=== PATIENT | male | born 1985 | race Two or more races ===

== ENCOUNTER 2018-02-13 18:24 | Emergency (ER) | payer MEDICAID ==
[~2018-02-13] VITALS: Ht 175.3 cm; Wt 68.9 kg
[2018-02-13] MEDS ORDERED: BUPROPION XL300 MG ORAL (18:46)
[2018-02-13] MEDS ORDERED: LAMICTAL25 MG ORAL (18:46)
[2018-02-13] MEDS ORDERED: RISPERDAL1 MG PO (18:46)
[2018-02-13] MEDS ORDERED: ISENTRESS25 MG ORAL (18:46)
--- NOTE | 2018-02-13 19:05 | Emergency Room Report ---
History of Present Illness General Chief Complaint: Medical Clearance Source: Patient Present Illness HPI 32-year-old male patient presents to ER brought in by police for medical clearance for okay to book for incarceration. Patient denies acute complaints in ER currently. Patient reports history of bipolar disease and HIV. Patient reports that his viral load is undetectable and has a normal white blood cell count. Patient reports taking lamotrigine and 2 other medications for bipolar disease, cannot remember the names of the medications. 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 Patient reports he is currently taking Wellbutrin. Patient reports thoughts of hurting himself. Police reports that patient is not on a 5150 hold, patient is going to be taken straight to a psych facility. Denies fever, chest pain, shortness of breath, him headache, abdominal pain. Allergies: Coded Allergies: PREDNISONE (Verified Allergy, Unknown, 02/13/18) Uncoded Allergies: PENICILLIN (Allergy, Unknown, 02/13/18) Patient History Past Medical History: see triage record Reviewed Nursing Documentation: PMH: Agreed; PSxH: Agreed Nursing Documentation-PMH History Of Psychiatric Problem: Yes - Bipolar, Anxiety, Mood Disorder Review of Systems All Other Systems: negative except mentioned in HPI Physical Exam Vital Signs Date Time Temp Pulse Resp B/P (MAP) Pulse Ox O2 Delivery O2 Flow Rate FiO2 02/13/18 18:31 98.0 130 20 120/86 100 Room Air 98.1 Sp02 EP Interpretation: reviewed, normal General Appearance: well appearing, no apparent distress, alert, GCS 15, non- toxic Head: normocephalic, atraumatic, other - negative Raccoon eyes, negative Smith sign Eyes: bilateral eye normal inspection, bilateral eye PERRL ENT: hearing grossly normal, normal pharynx, no angioedema, normal voice, uvula midline, moist mucus membranes Neck: full range of motion Respiratory: lungs clear, normal breath sounds, no rhonchi, no respiratory distress, no accessory muscle use, no wheezing, speaking full sentences Cardiovascular #1: regular rate, rhythm, no edema Gastrointestinal: non tender, soft, no mass, non-distended, no guarding, no rebound Genitourinary: no CVA tenderness Musculoskeletal: back normal, digits/nails normal, gait/station normal, normal range of motion, non-tender Neurologic: alert, oriented x3, responsive, motor strength/tone normal, sensory intact Skin: no rash Medical Decision Making PA Attestation Dr. Hines is my supervising Physician whom patient management has been discussed with. Diagnostic Impression: Primary Impression: Medical clearance for incarceration ER Course Pt. presents to the ED requesting medical clearance for booking. Multiple differentials considered. Patient Vitals Signs WNL, patient is afebrile. PE benign. No skull depression, lungs clear to auscultation, no abdominal TTP. Patient in no acute distress, nontoxic appearing, breathing without difficulty. ORDERS: none required at this time, the diagnosis is clinical ER COURSE: Patient reports thoughts of hurting himself. Police report that he is being taken to a psychiatric facility for determination of need for 5150 hold. patient reports that he will receive medications and treatment while at a psychiatric facility. Patient is not on a 5150 hold currently. Patient reports feeling anxious. Will provide patient with Ativan in ER for anxious feelings. Patient OK to discharge to police custody to take to psychiatric facility. DISCHARGE: At this time pt. is stable for d/c to police custody. Will provide printed patient care instructions, and any necessary prescriptions. Care plan and follow up instructions have been discussed with the patient prior to discharge - Please note that this Emergency Department Report was dictated using [email or web address] professor technology software, occasionally this can lead to erroneous entry secondary to interpretation by the dictation equipment. Last Vital Signs Date Time Temp Pulse Resp B/P (MAP) Pulse Ox O2 Delivery O2 Flow Rate FiO2 02/13/18 18:31 98.0 130 20 120/86 100 Room Air 98.1 Disposition: D/C TO LAW ENFORCEMENT IN [facility]UST Condition: Stable Departure Forms: Alf Clearance Additional Instructions: Followup with primary care provider in 3 -5 days. Followup with psychiatrist. Take medications as directed. Patient questions asked and answered. ER precautions given, patient instructed to return to ER immediately for any new or worsening of symptoms. Kory Gonzalez Feb 13, 2018 19:05
[2018-02-13] MEDS ORDERED: LORazepam 1mg tab ORAL ONE (19:15)
[2018-02-13 19:17] VITALS: BP 135/87
[2018-02-13 19:26] VITALS: BP 135/87
== END 2018-02-13 19:26 ==
LOC: EMR 19:19
DX: R45.851 Suicidal ideations (principal); F11.23 Opioid dependence with withdrawal; F31.9 Bipolar disorder, unspecified; Z88.0 Allergy status to penicillin; B20 Human immunodeficiency virus [HIV] disease; F41.9 Anxiety disorder, unspecified
CPT/HCPCS: 99283